=== PATIENT | male | born 1940 | race African-American/Black ===

== ENCOUNTER 2016-10-05 09:54 | Inpatient (IN) | payer OTHER ==
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
[2016-10-05] MEDS ORDERED: HEMOQUE TEST 1 EACH EACH ONE (10:32)
[2016-10-05 10:58] LABS: CPK(DFH) 151 IU/L (38-174)
[2016-10-05 10:59] LABS: ALBUMIN 3.4 g/dl (3.5-5.0); ALK PHOS 59 U/L (32-92); ANION GAP 9 (8-16); BILIRUBIN,TOTAL 0.9 mg/dl (0.2-1.0); CALCIUM 8.8 mg/dl (8.4-10.2); CO2 27 mmol/L (22-28); CREATININE 1.1 mg/dl (0.6-1.3); GLUCOSE,RANDOM 144 mg/dl (74-106); MAGNESIUM 1.9 mg/dL (1.8-2.4); PHOSPHOROUS 3.3 mg/dl (2.5-4.6); SGOT/AST 23 U/L (10-42); SGPT/ALT 22 U/L (10-40); TOT PROT 6.8 g/dl (6.4-8.3)
[2016-10-05 11:01] LABS: BASOPHIL 1.2 % (0-2.0); EOSINOPHIL 1.9 % (0-4.5); MCH 30.1 pg (25.7-33.7); MCHC 32.6 g/dl (32.0-35.9); MEAN CELL VOLUME 92.3 fl (80-96); MEAN PLT VOLUME 8.1 fl (7.5-11.1); PLATELET COUNT 306 K/MM3 (134-434); WHITE BLOOD COUNT 11.1 K/mm3 (4.0-10.0)
[2016-10-05 11:29] LABS: TROPONIN I (DFP) < 0.03 ng/ml (0.03-0.50)
[2016-10-05 12:09] LABS: CK MB 1.1 ng/ml (0.3-4.0)
[2016-10-05 12:21] LABS: URINE APPEARANCE Clear; URINE BILIRUBIN Negative (NEGATIVE); URINE BLOOD TRACE (NEGATIVE); URINE GLUCOSE (UA) Negative (NEGATIVE); URINE KETONE Negative (NEGATIVE); URINE LEUK ESTERASE Trace (NEGATIVE); URINE NITRITE Negative (NEGATIVE); URINE PROTEIN Trace (NEGATIVE); URINE UROBILINOGEN 0.2 E.U/dl (0.2-1.0)
[2016-10-05 12:22] LABS: URINE COLOR YELLOW
[2016-10-05 12:32] LABS: URINE BACTERIA FEW /hpf (NEGATIVE); URINE RBC 0-3 /hpf (0-3); URINE WBC 0-3 (3-5)
[2016-10-05] MEDS ORDERED: AZITHROMYCIN IVPB 500 MG in DEXTROSE 5%-WATER - 250 ML IVPB ONE (12:36)
[2016-10-05] MEDS ORDERED: CEFTRIAXONE 1 GM in DEXTROSE 5%-WATER - 50 ML IVPB ONE (12:36)
[2016-10-05] MEDS ORDERED: cefTRIAXone SODIUM 1 GM VIAL ONE (13:01)
[2016-10-05] MEDS ORDERED: AZITHROMYCIN 500 MG VIAL IVPB ONE (13:24)
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
[2016-10-05 16:18] VITALS: BMI 26.0
[2016-10-05] MEDS ORDERED: PNEUMOC 13-VAL CONJ-DIP CRM/PF 0.5 ML DISP.SYRIN IM ONE (16:18)
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
[2016-10-05] MEDS ORDERED: LORAZEPAM CARPU-JECT 2 MG/ML DISP.SYRIN IVPUSH ONE (21:13)
[2016-10-05] MEDS ORDERED: QUEtiapine FUMARATE 50 MG TABLET ONE (21:24)
[2016-10-05] MEDS ORDERED: ATORVASTATIN CA 20 MG TABLET (FP) PO SCH (22:00)
[2016-10-05] MEDS: MIRTAZAPINE 15 MG TABLET (FP) PO SCH (23:30)
[2016-10-05] MEDS: QUEtiapine FUMARATE 100 MG TABLET (FP) PO SCH (23:31)
[2016-10-06] MEDS: QUEtiapine FUMARATE 50 MG TABLET PO SCH (06:29)
[2016-10-06 08:22] LABS: MCH 32.1 pg (25.7-33.7); MCHC 34.2 g/dl (32.0-35.9); MEAN CELL VOLUME 93.8 fl (80-96); MEAN PLT VOLUME 7.7 fl (7.5-11.1); PLATELET COUNT 270 K/MM3 (134-434); RDW 12.6 % (11.9-15.9); WHITE BLOOD COUNT 8.9 K/mm3 (4.0-10.0)
[2016-10-06] MEDS: ASPIRIN 81 MG CHEWABLE TABLETS PO SCH (09:18)
[2016-10-06] MEDS: METOPROLOL SUCCINATE 50 MG TAB.SR.24H (FP) PO SCH (09:18)
[2016-10-06 09:22] LABS: CALCIUM 8.6 mg/dL (8.5-10.1); CREATININE 1.1 mg/dL (0.7-1.3); MAGNESIUM 2.2 mg/dL (1.8-2.4); PHOSPHOROUS 3.5 mg/dL (2.5-4.9)
--- NOTE | 2016-10-06 09:58 | EKG ---
Test Reason : Blood Pressure : / mmHG Vent. Rate : 069 BPM Atrial Rate : 069 BPM P-R Int : 196 ms QRS Dur : 092 ms QT Int : 378 ms P-R-T Axes : 052 019 046 degrees QTc Int : 405 ms POOR DATA QUALITY, INTERPRETATION MAY BE ADVERSELY AFFECTED SINUS RHYTHM NO PREVIOUS ECGS AVAILABLE Confirmed by CHARLES HURT MD ([id number]) on 10/06/2016 9:58:15 AM Referred By: MD VALE Confirmed By:CHARLES HURT MD
[2016-10-06] MEDS ORDERED: AZITHROMYCIN IVPB 500 MG in DEXTROSE 5%-WATER - 250 ML IVPB SCH (10:00)
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
[2016-10-06] MEDS ORDERED: ACETAMINOPHEN 325 MG TABLET (FP) PO PRN (15:48)
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
[2016-10-06] MEDS: QUEtiapine FUMARATE 100 MG TABLET (FP) PO SCH (22:52)
[2016-10-06] MEDS: MIRTAZAPINE 15 MG TABLET (FP) PO SCH (22:52)
[2016-10-06] MEDS: ATORVASTATIN CA 80 MG TABLET (FP) PO SCH (22:52)
[2016-10-07] MEDS: QUEtiapine FUMARATE 50 MG TABLET PO SCH (06:34)
[2016-10-07] MEDS: ASPIRIN 81 MG CHEWABLE TABLETS PO SCH (09:13)
[2016-10-07] MEDS: METOPROLOL SUCCINATE 50 MG TAB.SR.24H (FP) PO SCH (09:13)
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
[2016-10-07] MEDS: MEMANTINE HCL 5 MG TABLET (UD) PO SCH ×2 (14:30→21:00)
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
[2016-10-07] MEDS: MIRTAZAPINE 15 MG TABLET (FP) PO SCH (21:00)
[2016-10-07] MEDS: QUEtiapine FUMARATE 100 MG TABLET (FP) PO SCH (21:00)
[2016-10-07] MEDS: ATORVASTATIN CA 80 MG TABLET (FP) PO SCH (21:00)
[2016-10-08] MEDS: QUEtiapine FUMARATE 50 MG TABLET PO SCH ×2 (06:21→09:48)
[2016-10-08] MEDS: MEMANTINE HCL 5 MG TABLET (UD) PO SCH (09:36)
[2016-10-08] MEDS: METOPROLOL SUCCINATE 50 MG TAB.SR.24H (FP) PO SCH (09:47)
[2016-10-08] MEDS: ASPIRIN 81 MG CHEWABLE TABLETS PO SCH (09:47)
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
--- NOTE | 2016-10-08 12:51 | PN ---
Progress Note, SCHEDULER MAINTENANCE - Note Progress Note: Selected Entries 10/07/16 10/07/16 10/07/16 09:37 10:00 14:38 Breakfast 100% Diet Tolerated Lunch 100% Supper Temperature 97.3 F L 97.8 F 10/07/16 10/07/16 10/07/16 18:27 22:00 22:46 Breakfast Diet Tolerated Lunch Supper 25% 25% Temperature 98.1 F 98.1 F 10/08/16 10/08/16 10:00 10:09 Breakfast 75% Diet Tolerated Well Lunch Supper Temperature 98.1 F Tolerating diet.Feeding self. Sitting up at side of bed.
[2016-10-08 15:59] VITALS: BP 132/72; PULSE 71; TEMP 97.1
[2016-10-08] MEDS ORDERED: PT OWN MED DRAWER 7, Y5N ONE (18:18)
== END 2016-10-08 18:25 | DRG 69 ==
LOC: FER 09:54 → J5S 15:10 → J4S 10-06 15:16
PROVIDERS: ADMIT Internal Medicine; ATTEND Internal Medicine
DX: G45.9 Transient cerebral ischemic attack, unspecified (principal); G93.41 Metabolic encephalopathy; R41.82 Altered mental status, unspecified; F03.90 Unspecified dementia, unspecified severity, without behavioral disturbance, psychotic disturbance, mood disturbance, and anxiety; I10 Essential (primary) hypertension; R26.81 Unsteadiness on feet
CPT/HCPCS: 36415; 70450-TC; 71010-TC; 80048; 80053; 81003; 81015; 82550; 82553; 83605; 83690; 83735; 84100; 84484; 85025; 85027; 87040; 87086; 87186; 87254; 87804; 90670; 93005; 93010; 93306-TC; 93880-TC; 97161-GP; 99283-25